=== PATIENT | male | born 1970 | race African-American/Black ===

== ENCOUNTER 2017-04-03 19:35 | Emergency (ER) | payer SELFPAY ==
--- OUTSIDE RECORDS SUMMARY | 2017-04-03 19:38 | XMS | Clinical Summary ---
:1970 Author Organization [facility] Address [address] [place] [address] Phone Care Team Providers Name Role Phone , Primary Care Provider Unavailable Allergies Not on File Current Medications Not on file Active Problems Not on file Social History Tobacco Use Types Packs/Day Years Used Date Never Assessed Sex Assigned at Date Recorded Not on file Last Filed Vital Signs Not on file Plan of Treatment Not on file Results Not on filefrom Last 3 Months
== END 2017-04-03 19:55 | disposition home or self-care (01) ==
LOC: ERS 19:35
DX: M25.511 Pain in right shoulder (principal)
CPT/HCPCS: 99283